=== PATIENT | male | born 1955 | race Caucasian/White ===

== ENCOUNTER 2017-04-08 16:58 | Emergency (ER) | payer OTHER ==
--- NOTE | ~2017-04-08 | CR116 ---
[facility] A Service of [facility] RADIOLOGY TEXT RESULTS PATIENT: HUBERT LUNA LOCATION: [place] : 57 UNIT #: [id number] AGE: [address]: Leonila Mcallister SEX: M ORDER DR: [id number] [facility] [address] [place], [place] [address] [id number] P MR#: [id number] Acc #: [id number] NAME: HUBERT LUNA : 1955 SEX: M STUDY DATE/TIME: 04/08/2017 17:14 UNIT: [facility] ROOM: STUDY DESCRIPTION: CR Finger 2 View Thumb Lt Attending Physician: Leonila Mcallister P.A.-C. Ordering Physician: Leonila Mcallister P.A.-C. MEDICAL IMAGING REPORT This report is preliminary unless electronic signature is present EXAM Left thumb series INDICATIONS Thumb laceration today. Observation for foreign body. PROCEDURE Three views of the left thumb COMPARISON None FINDINGS No acute bony injury. There is a 3 mm radiodense foreign body in the superficial soft tissues, just lateral to the distal second metacarpal bone. IMPRESSION 3 mm radiodense foreign body in the soft tissues just lateral to the second metacarpal head. No acute bone injury. Dictated by... Bello Torres M.D. THIS IS AN ELECTRONICALLY VERIFIED REPORT Bello Torres M.D. at 04/09/2017 9:29 AM Sage TD: 04/08/2017 18:43 JOB #: [id number] MEDICAL IMAGING REPORT Page 1 of 1 COPY
== END 2017-04-08 18:55 | disposition home or self-care (01) ==
LOC: CFTX 16:58 → CED 16:58 → CFTX 18:52
DX: S61.012A Laceration without foreign body of left thumb without damage to nail, initial encounter (principal); E11.9 Type 2 diabetes mellitus without complications; Z79.4 Long term (current) use of insulin; Z91.041 Radiographic dye allergy status; W31.2XXA Contact with powered woodworking and forming machines, initial encounter; Y92.009 Unspecified place in unspecified non-institutional (private) residence as the place of occurrence of the external cause
CPT/HCPCS: 12001; 73140; 90471; 90715; 99283